=== PATIENT | female | born 1990 | race Caucasian/White ===

== ENCOUNTER 2017-03-13 18:33 | Emergency (ER) | payer MEDICARE ==
[~2017-03-13] VITALS: Ht 170.2 cm; Wt 61.2 kg
[2017-03-13 19:30] VITALS: BP 136/80
--- NOTE | 2017-03-14 03:15 | ED.ADGEN ---
Past History Past Medical History: No Pertinent History Past Surgical History: No Surgical History Alcohol Use: Occasionally Drug Use: None Adult General Chief Complaint Chief Complaint Right hand injury HPI HPI Patient is a [6-year-old female who presents with laceration dorsum of right hand. Patient accidentally fell and broke plate glass with left hand. Denies foreign body sensation. 3 cm irregular laceration to dorsum of mid right hand, superficial, no active bleeding or foreign body appreciated. No Loss of hand or finger movement due to tendon injury. Tetanus is up-to-date.[] Review of Systems Review of Systems Review symptoms as per history of present illness. All other review symptoms are negative. Allergies Allergies Allergies Coded Allergies Type Severity Reaction Last Updated Verified No Known Drug Allergies 03/13/17 No Physical Exam Physical Exam Constitutional: Well developed, well nourished, no acute distress, non-toxic appearance. [] Extremities: 3 cm irregular laceration to dorsum of mid right hand, superficial , no active bleeding or foreign body appreciated. No Loss of hand or finger movement due to tendon injury. [] Neurologic: Alert and oriented X 3, right hand normal motor function, normal sensory function, no focal deficits noted. [] Psychologic: Affect normal, judgement normal, mood normal. [] Current Patient Data Vital Signs Vital Signs Date Time Temp Pulse Resp B/P (MAP) Pulse Ox O2 Delivery O2 Flow Rate FiO2 03/13/17 19:30 70 12 136/80 (98) 99 Room Air 03/13/17 18:45 98.2 EKG EKG [] Radiology/Procedures Radiology/Procedures [Laceration repair procedure note Indication: Laceration to right hand Consent: Verbal consent was given by the patient prior to the procedure. Anesthesia use: 3 mL's of 2% lidocaine with epinephrine Wound clean, lidocaine injected into wound margins and explored. No tendon injury or foreign body present. wound closed with #5, 5-0 Ethilon simple interrupted sutures and bandage placed. Typical wound care instructions provided.. ] Course & Med Decision Making Course & Med Decision Making Pertinent Labs and Imaging studies reviewed. (See chart for details) [] Final Impression Final Impression [Laceration to right hand] Problems: Dragon Disclaimer Dragon Disclaimer This electronic medical record was generated, in whole or in part, using a voice recognition dictation system. RADHA GREY DO Mar 14, 2017 03:15
== END 2017-03-13 19:38 | disposition home or self-care (01) ==
LOC: ER 18:33
DX: S61.411A Laceration without foreign body of right hand, initial encounter (principal); W25.XXXA Contact with sharp glass, initial encounter; Y93.89 Activity, other specified; Y99.8 Other external cause status; Y92.89 Other specified places as the place of occurrence of the external cause
CPT/HCPCS: 12002; 99283-25